=== PATIENT | male | born 1950 | race Caucasian/White ===

== ENCOUNTER → 2017-05-23 | Outpatient (CLI) | payer MEDICARE | END | disposition home or self-care (01) | LOC: CVU 06:48 | PROVIDERS: ATTEND Internal Medicine | DX: I83.813 Varicose veins of bilateral lower extremities with pain (principal); M71.22 Synovial cyst of popliteal space [Baker], left knee; J44.9 Chronic obstructive pulmonary disease, unspecified; F17.200 Nicotine dependence, unspecified, uncomplicated | CPT/HCPCS: 93970 ==

== ENCOUNTER → 2017-06-29 | Outpatient (CLI) | payer MEDICARE | END | disposition home or self-care (01) | LOC: CFH 06:49 | PROVIDERS: ATTEND Physician Assistant | DX: K76.0 Fatty (change of) liver, not elsewhere classified (principal); E55.9 Vitamin D deficiency, unspecified; R60.9 Edema, unspecified; M25.562 Pain in left knee; J44.9 Chronic obstructive pulmonary disease, unspecified; R73.01 Impaired fasting glucose; F17.200 Nicotine dependence, unspecified, uncomplicated | CPT/HCPCS: 76700 ==

== ENCOUNTER → 2020-01-21 | Outpatient (CLI) | payer MEDICARE | END | disposition home or self-care (01) | LOC: CVU 08:41 | PROVIDERS: ATTEND Nurse Practitioner Primary Care | DX: I08.0 Rheumatic disorders of both mitral and aortic valves (principal); R01.1 Cardiac murmur, unspecified | CPT/HCPCS: 93306; 93356 ==